=== PATIENT | female | born 1995 | race Two or more races ===

== ENCOUNTER 2024-06-10 21:34 | Emergency (ER) | payer BC, MEDICAID, SELFPAY ==
[2024-06-10 21:35] VITALS: BMI 33.2
[2024-06-10 21:48] VITALS: BP 108/78; PULSE 88; RESP 18; TEMP 37.3; O2SAT 100
--- NOTE | 2024-06-10 21:54 | XR_ITS ---
Examination: Complete OB ultrasound, less than 14 weeks, transabdominal Date and time of exam: June 10, 2024 1059 hrs. Indications: Lower pelvic pain beginning 4 days ago, early by history Technique: Obstetrical ultrasound images less than 14 weeks performed via transabdominal imaging Findings: A normal shaped single intrauterine gestation is present in the uterus. pole 6.7 cm corresponds to 13 weeks 0 days gestational age Cardiac motion 169 bpm Ultrasonographic survey of visible and placental structures unremarkable. Amniotic fluid volume appears appropriate for this estimated gestational age. Right ovary 3.9 x 2.4 x 2.6 cm arterial flow Left ovary 3.0 x 1.6 x 2.3 cm arterial flow. Impression: Viable intrauterine gestation 13 weeks 0 days
--- NOTE | 2024-06-10 21:55 | PD.EDRME ---
Rapid Medical Screening Exam RME Arrival date/time: 06/10/24 21:34 28-year-old female G1 approximately 13 weeks presents emergency department complaining of abdominal cramping with no vaginal bleeding that started 4 days ago. Chief Complaint: Abdominal Pain Time Seen by Provider: 06/10/24 21:46 Vital signs: Vital Signs Temperature 99.2 F 06/10/24 21:48 Pulse Rate 88 06/10/24 21:48 Respiratory Rate 18 06/10/24 21:48 Blood Pressure 108/78 06/10/24 21:48 Pulse Oximetry (%) 100 06/10/24 21:48 Oxygen Delivery Method Room Air 06/10/24 21:48 Vital signs reviewed by provider: Yes
[2024-06-10 22:19] LABS: Basophils # (Auto) 0.1 Thou/mm3 (0.0-0.2); Basophils % (Auto) 1 % (0-2.5); Eosinophils # (Auto) 0.2 Thou/mm3 (0.0-0.5); Eosinophils % (Auto) 1 % (0-10); Hematocrit 38.8 % (36.0-46.0); Hemoglobin 13.4 g/dL (12.0-16.0); Immature Granulocytes % (Auto) 1 % (0-0); Immature Granulocytes Auto 0.18 Thou/mm3 (0.00-0.00); Lymphocytes # (Auto) 3.2 Thou/mm3 (1.0-4.8); Lymphocytes % (Auto) 21 % (10-50); Mean Corpuscular HGB Conc 34.5 g/dl (31.0-37.0); Mean Corpuscular Hemoglobin 29.4 pg (25.0-35.0); Mean Corpuscular Volume 85 fL (80-100); Monocytes # (Auto) 1.1 Thou/mm3 (0.0-0.8); Monocytes % (Auto) 7 % (0-12); Neutrophils # (Auto) 10.6 Thou/mm3 (1.8-7.7); Neutrophils % (Auto) 69 % (37-80); Nucleated Red Blood Cell % 0 /100 WBC (0); Platelet Count 400 Thou/mm3 (140-440); RDW Standard Deviation 37.7 fL (36.4-46.3); Red Blood Count 4.56 Miln/mm3 (4.00-5.20); White Blood Count 15.4 Thou/mm3 (3.6-11.0)
[2024-06-10 22:20] LABS: Collection Type, Urine Clean Catch
[2024-06-10 22:46] LABS: Alanine Aminotransferase 20 U/L (10-49); Albumin, Serum 4.7 gm/dL (3.5-5.0); Albumin/Globulin Ratio 1.9 (1.2-2.2); Alkaline Phosphatase 60 U/L (46-116); Anion Gap 8 (7-16); Aspartate Amino Transferase < 10 U/L (0-34); BUN/Creatinine Ratio 14 Ratio (12-20); Bilirubin,Total 0.3 mg/dL (0.3-1.2); Blood Urea Nitrogen 7 mg/dL (9-23); Calcium 10.7 mg/dL (8.3-10.6); Calcium (Corrected) 10.7 mg/dL (8.5-10.1); Carbon Dioxide 24.2 mMol/L (20.0-31.0); Chloride 103 mMol/L (98-107); Creatinine (Component) 0.5 mg/dL (0.6-1.3); Globulin 2.5 gm/dL (2.3-3.5); Glucose 93 mg/dL (74-106); Osmolality,Calculated 268 (275-295); Potassium 3.6 mMol/L (3.4-5.1); Sodium 135 mMol/L (136-145); Total Protein 7.2 gm/dL (5.7-8.2); eGFR > 60 See Note
[2024-06-10 23:11] LABS: Bacteria,Urine 2+; Bilirubin,Urine Negative (Negative); Blood,Urine Negative (Negative); Budding Yeast,Urine Present; Clarity,Urine Clear (Clear/Hazy); Color,Urine Yellow (Lt Yel-Yel); Glucose, Urine 4+ (Negative); Ketones,Urine Negative (Negative); Leukocyte Esterase,Urine Negative (Negative); Nitrite,Urine Negative (Negative); Protein,Urine Trace (Neg - Trace); RBC,Urine 9 /hpf (0-3); Specific Gravity,Urine 1.033 (1.001-1.035); Squamous Epithelial Cell,Urine 1 /hpf (0-5); Urobilinogen,Urine Negative mg/dL (0.0-1.0); WBC,Urine 7 /hpf (0-5)
[2024-06-10 23:14] LABS: Beta HCG,Quantitative 59437 mIU/mL (<5.0)
[2024-06-10 23:55] LABS: Culture Indicated,Urine Yes
--- NOTE | 2024-06-11 | PD.EDABDPN ---
ED Abdominal Pain RME/HPI General Chief Complaint: Abdominal Pain Stated complaint: 13WK PREG, ABD CRAMPING, LOWER BACK PAIN Time seen by provider: 06/10/24 21:46 Arrival date/time: 06/10/24 21:34 28-year-old female G1 approximately 13 weeks presents emergency department complaining of abdominal cramping with no vaginal bleeding that started 4 days ago. Source: patient Mode of arrival: ambulatory Limitations: no limitations RME / HPI RME / HPI narrative: 06/10/24 21:34 28-year-old female G1 approximately 13 weeks presents emergency department complaining of abdominal cramping with no vaginal bleeding that started 4 days ago. Related Data Previous Rx's ?Medication ?Instructions ?Recorded acetaminophen 500 mg capsule 500 mg PO Q4H PRN fever #60 caps 08/24/18 dextromethorphan-guaifenesin 10 1 tab-cap PO Q8H PRN cough #30 caps 08/24/18 mg-200 mg capsule ibuprofen 800 mg tablet (IBU) 800 mg PO QID PRN pain #60 tabs 08/24/18 acetaminophen 500 mg tablet 1,000 mg (2 x 500 mg) PO Q6H PRN 01/08/24 (Tylenol Extra Strength) pain #60 tabs ibuprofen 800 mg tablet 800 mg PO TID PRN pain #30 tabs 01/08/24 lidocaine 5 % topical patch 1 patch topical Q24H #15 ea 01/08/24 methocarbamol 500 mg tablet 1,000 mg (2 x 500 mg) PO Q8H PRN 01/08/24 muscle pain #30 tabs cephalexin 500 mg capsule 500 mg PO TID 5 days #15 caps 06/11/24 Allergies Allergy/AdvReac Type Severity Reaction Status Date / Time No Known Allergies Allergy Verified 06/10/24 21:35 Review of Systems Review of Systems Systems Reviewed: All systems reviewed, normal except as documented Constitutional Constitutional: Reports system reviewed and no additional complaints, except as documented, Denies body ache(s), Denies chills and Denies fever(s) Eyes Eyes: Reports system reviewed and no additional complaints, except as documented and Denies change in vision ENT Ears, Nose, Mouth, and Throat: Reports system reviewed and no additional complaints, except as documented, Denies disequilibrium, Denies dizziness, Denies sore throat and Denies vertigo Cardiovascular Cardiovascular: Reports system reviewed and no additional complaints, except as documented, Denies chest pain and Denies dyspnea Respiratory Respiratory: Reports system reviewed and no additional complaints, except as documented, Denies chest congestion, Denies cough and Denies dyspnea Gastrointestinal Gastrointestinal: Reports system reviewed and no additional complaints, except as documented, Reports abdominal pain, Denies nausea and Denies vomiting Musculoskeletal Musculoskeletal: Reports system reviewed and no additional complaints, except as documented, Denies abnormal gait and Denies arthralgias Integumentary/Breasts Skin/Breast: Reports system reviewed and no additional complaints, except as documented, Denies erythema, Denies rash and Denies wounds Neurologic Neurologic: Reports system reviewed and no additional complaints, except as documented, Denies abnormal gait, Denies disequilibrium, Denies dizziness and Denies vertigo Past Medical History Past Medical History CARDIAC: Negative Congestive Heart Failure RESPIRATORY: Negative Chronic Obstructive Pulmonary Disease (COPD) GENITOURINARY: Negative Renal Disease ENDOCRINE: Negative Diabetes Mellitus Type 1 or Diabetes Mellitus Type 2 Social History SMOKING STATUS: Never smoker SUBSTANCE USE: does not use ED Exam General Limitations: Present no limitations General appearance: Present alert and in no apparent distress Head Head exam: Present atraumatic Eye Eye exam: Present normal appearance, PERRL and EOMI ENT ENT exam: Present normal exam, normal oropharynx and mucous membranes moist Neck Neck exam: Present normal inspection, full ROM and trachea midline Chest Chest inspection: Present normal inspection and symmetric chest wall rise Respiratory Respiratory exam: Present normal lung sounds bilaterally Cardiovascular Cardiovascular exam: Present regular rate, normal rhythm and normal heart sounds Abdominal Exam Abdominal exam: Present soft and normal bowel sounds Extremities Exam Extremities exam: Present normal inspection and full ROM Back Exam Back exam: Present normal inspection and full ROM Neurological Exam Neurological exam: Present alert, oriented X3 and CN II-XII intact Psychiatric Psychiatric exam: Present normal affect and normal mood Skin Skin exam: Present warm, dry, intact and normal color Course Quality Measures none Orders Category Date Time Status US OB <= 14 weeks fetus Stat Exams 06/10/24 21:54 Completed ABO/RH Type Stat Lab 06/10/24 22:15 Completed Beta HCG,Quantitative Stat Lab 06/10/24 22:15 Completed CBC Stat Lab 06/10/24 22:15 Completed CMP [Comprehensive Metabolic Panel] Stat Lab 06/10/24 22:15 Completed Urinalysis, C/S if Indicated Stat Lab 06/10/24 22:12 Completed Urine Culture Stat Lab 06/10/24 22:12 Received [id number] [Rocephin] 1,000 mg Med 06/10/24 23:59 Discontinued Lidocaine 1% 20 ml [Xylocaine 1% 20 ML] 2.1 ml IM X1 Vital Signs Vital signs: Vital Signs Temperature 99.2 F 06/10/24 21:48 Pulse Rate 88 06/10/24 21:48 Respiratory Rate 18 06/10/24 21:48 Blood Pressure 108/78 06/10/24 21:48 Pulse Oximetry (%) 100 06/10/24 21:48 Oxygen Delivery Method Room Air 06/10/24 21:48 100% room air within normal limits Abdominal Pain MDM MDM Narrative MDM Narrative:: 28-year-old female G1 approximately 13 weeks presents emergency department complaining of abdominal cramping with no vaginal bleeding that started 4 days ago. CBC mild leukocytosis 15.4 no anemia. CMP was unremarkable. Beta-hCG 59 437. Ultrasound findings viable intrauterine gestation 13 weeks. Urinalysis positive for WBCs and bacteria concerning for UTI. Patient treated with IM Rocephin and discharged on cephalexin. Patient appears nontoxic and hemodynamically stable. Patient stable for discharge. Patient data External records reviewed:: [facility] previous records Clinical information provided by:: patient Social determinants that could affect healthcare access:: none Patient has the following chronic illnesses:: None How is presenting disease/condition affected by chronic disease/condition?: no chronic disease Evaluation data The following diagnostics were reviewed and interpreted by me:: lab results and radiology exam(s) Lab and/or radiology exams considered but not ordered:: Ordered Interpretation Summary: Interpreted by me Medications / Prescriptions Medications or Prescriptions considered but not ordered:: Ordered Medication administrations:: Medication Administration History Discontinued Medications Ceftriaxone Sodium 1,000 mg/ (Lidocaine HCl 2.1 ml) 0 mg IM X1 ONE Stop: 06/11/24 00:00 Last Admin: 06/11/24 00:10 Dose: 2.1 mg Documented By: OA Given Consultations Consultation(s) initiated? (list below): No Diagnosis Differential diagnosis abdominal pain: abdominal pain, acute appendicitis, constipation, endometriosis, gastroenteritis and pancreatitis Most likely diagnosis given after review of the tests above:: UTI affecting Admission Indicated Admission indicated?: not indicated Admission Request Was there a request for admission?: No Disposition Plan Disposition Plan: Discharge Discharge Attestation Discharge Attestation: The patient and all family members were given an opportunity to ask questions and understood the discharge instructions. Discharge instructions specifically effects, indications for sooner follow up or return to the emergency department, and the expected course of current diagnosis. Patient condition: Stable Discharge Plan Plan Patient Disposition: HOME (Self Care) Disposition Comment: Stable Prescriptions/Referrals Prescriptions/Med Rec: New cephalexin 500 mg capsule 500 mg PO TID 5 Days Qty: 15 0RF No Action acetaminophen 500 mg capsule 500 mg PO Q4H PRN (Reason: fever) Qty: 60 0RF ibuprofen [IBU] 800 mg tablet 800 mg PO QID PRN (Reason: pain) Qty: 60 0RF dextromethorphan-guaifenesin 10-200 mg capsule 1 tab-cap PO Q8H PRN (Reason: cough) Qty: 30 0RF ibuprofen 800 mg tablet 800 mg PO TID PRN (Reason: pain) Qty: 30 0RF acetaminophen [Tylenol Extra Strength] 500 mg tablet 1,000 mg PO Q6H PRN (Reason: pain) Qty: 60 0RF methocarbamol 500 mg tablet 1,000 mg PO Q8H PRN (Reason: muscle pain) Qty: 30 0RF lidocaine 5 % adhesive patch,medicated 1 patch topical Q24H Qty: 15 0RF Rx Instructions: leave on most painful area for up to 12 hrs Referrals: Grazyna Auguste PA-C ([facility]) [Primary Care Provider] - In 1 week Problem List Clinical Impression: Urinary tract infection affecting Patient/Caregiver Discharge Instructions Discharge Activity: activity as tolerated Education Materials: ED CYSTITIS Female Adult Additional Instructions: Drink plenty of fluids and get plenty of rest. Take antibiotics as prescribed. Follow-up with DELIVERY SUPERVISOR in 2 to 3 days. Pelvic rest. Return to emergency department for any worsening symptoms or as needed. Print Language: Armenian Stand Alone Forms: Carmen Award Info., Patient Portal Info Letter PA/JOHNNY Supervising Physician PA/CUSTOMER COUNTER REPRESENTATIVE Supervising Physician: Dr. Nuñez
[2024-06-11] MEDS: cefTRIAXone 1,000 MG, LIDOCAINE 1% 20 ML 2.1 ML IM (00:10)
== END 2024-06-11 01:11 | disposition home or self-care (01) ==
PROVIDERS: Emergency Provider Emergency Medicine; PCP Nurse Practitioner Family
DX: O23.41 Unspecified infection of urinary tract in pregnancy, first trimester (principal); N39.0 Urinary tract infection, site not specified; Z3A.13 13 weeks gestation of pregnancy
CPT/HCPCS: 36415; 76801; 80053; 81001; 84702; 85025; 86900; 86901; 87086; 96372; 99284; J0696; J3490

== ENCOUNTER 2024-09-03 06:14 | Observation (INO) | payer BC, MEDICAID, SELFPAY ==
[2024-09-03 06:25] VITALS: BP 122/76; PULSE 89; RESP 18; RESP 98; TEMP 37
[2024-09-03 06:26] VITALS: BP 122/76; PULSE 86; O2SAT 97
[2024-09-03 06:29] VITALS: TEMP 37; BMI 35.4
== END 2024-09-03 07:07 | disposition home or self-care (01) ==
PROVIDERS: Admitting Provider Specialist; Visit Provider Specialist
DX: O36.8120 Decreased fetal movements, second trimester, not applicable or unspecified (principal); Z3A.25 25 weeks gestation of pregnancy
CPT/HCPCS: 59899

== ENCOUNTER 2024-12-07 22:32 | Observation (INO) | payer MEDICAID, SELFPAY ==
[2024-12-07] VITALS (17 sets, daily range): BP systolic 115–129; BP diastolic 70–79; PULSE 83–100; RESP 18–97; TEMP 36.8; O2SAT 93–98; BMI 37.5
--- NOTE | 2024-12-07 23:10 | XR_ITS ---
Examination: Complete OB ultrasound greater than 14 weeks Date and time of exam: December 07, 2024, 11:27 PM INDICATIONS: Patient fell today with injury to the pelvis with pain Findings: Viable intrauterine single fetus with single amniotic sac presentation cephalic spine maternal right Hernia motion 125 BPM Placenta anterior grade 3 Umbilical cord insertion seen Cervix 3.0 cm Right ovary 5.3 x 3.1 cm Left ovary is obscured by bowel gas. Composite estimated gestational age based on BPD, head circumference, abdominal circumference, femur length is 38 weeks 1 day Estimated weight 3859 g. Survey of intracranial anatomy, spinal anatomy, abdominal anatomy, four-chamber heart performed with no abnormalities identified. Impression: Viable intrauterine gestation cephalic presentation No placental abruption.
--- NOTE | 2024-12-07 23:10 | XR_ITS ---
Examination: Biophysical profile, ultrasound Date and time of exam: December 07, 2024, 11:19 PM INDICATIONS: Patient fell this morning with pelvic pain Technique: Multiple transabdominal sonographic images of the pelvis abdomen obtained. Attention is directed to the breathing movement, gross body movement, amniotic fluid volume and tone. Findings: Amniotic fluid index 15.2 cm Total biophysical profile is 8 of 8. breathing movement is 2. Gross body movement is 2. tone is 2. Qualitative amniotic fluid volume is 2 Impression: Biophysical profile is 8 of 8.
[2024-12-07 23:17] LABS: ROM Kit Lot # 58102387
[2024-12-07 23:18] LABS: Rupture of Fetal Membranes Negative (Negative); Swb Mxed in Solvent 1 min? Yes
[2024-12-08] VITALS (32 sets, daily range): BP systolic 105–131; BP diastolic 56–86; PULSE 69–96; RESP 18; TEMP 36.8; O2SAT 95–98
[2024-12-08] MEDS: RINGERS LACTATED 1000 ML 1,000 ML 999 ML IV (00:45)
[2024-12-08] MEDS: RINGERS LACTATED 1000 ML 1,000 ML 125 ML IV (01:35)
[2024-12-08 02:55] LABS: Basophils % (Auto) 0 % (0-2.5); Eosinophils # (Auto) 0.1 Thou/mm3 (0.0-0.5); Eosinophils % (Auto) 1 % (0-10); Hematocrit 35.2 % (36.0-46.0); Hemoglobin 12.2 g/dL (12.0-16.0); Immature Granulocytes % (Auto) 1 % (0-0); Lymphocytes # (Auto) 1.7 Thou/mm3 (1.0-4.8); Lymphocytes % (Auto) 19 % (10-50); Mean Corpuscular HGB Conc 34.7 g/dl (31.0-37.0); Mean Corpuscular Hemoglobin 28.6 pg (25.0-35.0); Mean Corpuscular Volume 83 fL (80-100); Monocytes # (Auto) 0.8 Thou/mm3 (0.0-0.8); Monocytes % (Auto) 9 % (0-12); Neutrophils # (Auto) 6.5 Thou/mm3 (1.8-7.7); Neutrophils % (Auto) 70 % (37-80); Nucleated Red Blood Cell % 0 /100 WBC (0); Platelet Count 249 Thou/mm3 (140-440); RDW Standard Deviation 39.7 fL (36.4-46.3); Red Blood Count 4.26 Miln/mm3 (4.00-5.20); White Blood Count 9.2 Thou/mm3 (3.6-11.0)
--- NOTE | 2024-12-08 09:39 | PD.LDANTE ---
Documentation for date of: 12/08/24 OB Labor/Induct. HPI History of Present Illness Chief complaint: Abdominal trauma : 1 Para: 0 Term pregnancies: 0 pregnancies: 0 Living children: 0 History of Abortions: Spontaneous and Elective: 0 History of Vaginal deliveries: 0 History of sections: No History of : No ELIAS: 12/16/24 History of present illness: 29-year-old 1 para 0 at 38 weeks and 6 days who presented to labor and delivery triage with left-sided abdominal trauma Patient had intermittent contractions on presentation. She was initially managed with monitoring as well as ultrasound which was within normal limits subsequently she proceeded to have more frequent uterine contractions and she was admitted for inpatient observation. Patient did well overnight, she was able to sleep. Denies any significant contractions at this time History of Present Adequate Care: Yes Past Medical History Surgical History SURGICAL: Negative Section Meds Home Medications and Allergies Home Medications ?Medication ?Instructions ?Recorded ?Confirmed ?Type folic acid 1 mg tablet 09/03/24 History vit no.95-ferrous tab PO 09/03/24 History fumarate 28 mg-folic acid 800 mcg tablet () Allergies Allergy/AdvReac Type Severity Reaction Status Date / Time No Known Allergies Allergy Verified 12/07/24 22:59 OB Exam Physical Exam Vital signs: Temp Pulse Resp BP Pulse Ox 98.3 F 69 18 108/74 97 12/08/24 06:00 12/08/24 08:15 12/08/24 06:00 12/08/24 08:15 12/08/24 00:54 Constitutional Constitutional: no acute distress Routine HEENT Exam Head: Present normocephalic and atraumatic Eye: Present EOMI and PERRL ENT: Present mucous membranes moist Routine Neck Exam Neck: Present supple and trachea midline Routine Cardiovascular Exam Cardiovascular: Present RRR Routine Abdominal Exam Abdominal: Present soft and normoactive bowel sounds Detailed Labor and Delivery Exam Dilation (cm): 0.5 Cervix position: mid station: -4 Consistency: firm Routine Extremities Exam Extremities: Present full ROM Routine Skin Exam Skin: Present intact, dry and warm Routine Neurological Exam Neurological: Present alert, oriented X3 and CN II-XII intact Routine Psychiatric Exam Psychiatric: Present normal affect and normal thought process OB Results Labs 12/08/24 00:45 Labs: Short CBC 06/29/25 Range/Units 00:45 WBC 9.2 (3.6-11.0) Thou/mm3 Hgb 12.2 (12.0-16.0) g/dL Hct 35.2 L (36.0-46.0) % Plt Count 249 (140-440) Thou/mm3 OB Assessment & Plan Assessment and Plan (1) Trauma during : Status: Acute Assessment and plan: Patient has been observed overnight without any cervical change, onset of uterine bleeding or leakage of fluid Will plan to discharge home now and she can continue to follow-up for her routine office visits
[2024-12-08 19:53] LABS: Syphilis Nonreactive (Nonreactive)
== END 2024-12-08 10:50 | disposition home or self-care (01) ==
PROVIDERS: Admitting Provider Obstetrics & Gynecology; Visit Provider Obstetrics & Gynecology
DX: O9A.213 Injury, poisoning and certain other consequences of external causes complicating pregnancy, third trimester (principal); S39.91XA Unspecified injury of abdomen, initial encounter; W19.XXXA Unspecified fall, initial encounter; O47.1 False labor at or after 37 completed weeks of gestation; Z3A.38 38 weeks gestation of pregnancy
CPT/HCPCS: 36415; 59025; 59899; 76805; 76819; 84112; 85025; 86780; 86850; 86900; 86901; J7120

== ENCOUNTER 2024-12-15 22:10 | Observation (INO) | payer MEDICAID, SELFPAY ==
[2024-12-15] VITALS (15 sets, daily range): BP systolic 118; BP diastolic 76; PULSE 75–95; RESP 18–98; TEMP 36.8; O2SAT 96–98
== END 2024-12-15 23:40 | disposition home or self-care (01) ==
PROVIDERS: Admitting Provider Obstetrics & Gynecology; Visit Provider Obstetrics & Gynecology
DX: O47.1 False labor at or after 37 completed weeks of gestation (principal); Z3A.39 39 weeks gestation of pregnancy
CPT/HCPCS: 59025; 59899

== ENCOUNTER 2024-12-23 14:28 | Inpatient (IN) | payer MEDICAID, SELFPAY ==
[2024-12-23] VITALS (31 sets, daily range): BP systolic 108–129; BP diastolic 58–92; PULSE 84–97; RESP 18–97; TEMP 36.7–37.1; O2SAT 95–98; BMI 38.0; BMI 36.8
--- NOTE | 2024-12-23 15:51 | XR_ITS ---
Examination: age Limited TECHNIQUE: Limited transabdominal sonographic images pelvis Date and time: December 23, 2024 1605 hours INDICATIONS: Post dates, unknown presentation FINDINGS: Viable intrauterine gestation cephalic presentation spine anterior maternal right Cardiac motion 166 BPM IMPRESSION: Viable intrauterine gestation cephalic presentation
[2024-12-23 16:02] LABS: Basophils # (Auto) 0.1 Thou/mm3 (0.0-0.2); Basophils % (Auto) 1 % (0-2.5); Eosinophils # (Auto) 0.1 Thou/mm3 (0.0-0.5); Eosinophils % (Auto) 1 % (0-10); Hematocrit 36.2 % (36.0-46.0); Hemoglobin 12.9 g/dL (12.0-16.0); Immature Granulocytes Auto 0.12 Thou/mm3 (0.00-0.00); Lymphocytes # (Auto) 1.7 Thou/mm3 (1.0-4.8); Lymphocytes % (Auto) 18 % (10-50); Mean Corpuscular HGB Conc 35.6 g/dl (31.0-37.0); Mean Corpuscular Hemoglobin 29.0 pg (25.0-35.0); Mean Corpuscular Volume 81 fL (80-100); Monocytes # (Auto) 1.0 Thou/mm3 (0.0-0.8); Monocytes % (Auto) 10 % (0-12); Neutrophils # (Auto) 6.8 Thou/mm3 (1.8-7.7); Neutrophils % (Auto) 70 % (37-80); Nucleated Red Blood Cell # 0.00 Thou/mm3 (0.00-0.00); Nucleated Red Blood Cell % 0 /100 WBC (0); Platelet Count 262 Thou/mm3 (140-440); RDW Standard Deviation 40.0 fL (36.4-46.3); Red Blood Count 4.45 Miln/mm3 (4.00-5.20); White Blood Count 9.8 Thou/mm3 (3.6-11.0)
[2024-12-23 16:41] LABS: Syphilis Nonreactive (Nonreactive)
[2024-12-23] MEDS: RINGERS LACTATED 1000 ML 1,000 ML 100 ML IV (17:15)
--- NOTE | 2024-12-23 22:05 | PD.LDHP ---
Documentation for date of: 12/23/24 OB Labor/Induct. HPI History of Present Illness Chief complaint: IOL : 1 Para: 0 Term pregnancies: 0 pregnancies: 0 Living children: 0 History of Abortions: Spontaneous and Elective: 0 History of Vaginal deliveries: 0 History of sections: No History of : No Date of last menstrual period: 03/24/24 ELIAS: 12/16/24 Gestational Age (weeks): 41 Gestational Age (days): 0 Gestational age based on last menstrual period: 39 History of present illness: Johanna Shah is a 29-year-old 1 para 0 at 41 weeks and 0 days gestation presenting for term induction of labor. Her estimated due date is 12/16/2024, based on an ultrasound performed on 03/24/2024. The patient receives care with Dr. Farias at [facility] and has been compliant with her appointments. On presentation, Ms. Shah denies any contractions, leakage of fluid, or other obstetric complaints. She has had an unremarkable course with normal ultrasounds throughout. The patient's records have been reviewed, indicating appropriate care and screening. Obstetric History: - GPAL: A0 L0 - Current : - Gestational age: 41 weeks and 0 days - Estimated due date: December 16, 2024 - care with Dr. Farias at [facility] - Group B strep negative Diagnostic Test Results and Labs: - Panel (07/10/2024): Blood group O positive, antibody screen negative, HIV non-reactive, RPR non-reactive, hepatitis B surface antigen negative, rubella immune, gonorrhea not detected, chlamydia not detected - Triple screen (07/10/2024): Negative - One-hour glucose tolerance test (09/10/2024): 115 - Ultrasounds: Unremarkable - Group B strep: Negative ROS: Obstetric: Negative for contractions, leakage of fluid. Labs Labs: Positive: Rubella Titre, Negative: RPR, Hepatitis B, HIV, Chlamydia, Gonorrhea and Group Beta Strep and Unknown: Herpes Type 1, Herpes Type 2 and Covid-19 Past Medical History Surgical History SURGICAL: Negative Section Meds Home Medications and Allergies Home Medications ?Medication ?Instructions ?Recorded ?Confirmed ?Type folic acid 1 mg tablet 09/03/24 History vit no.95-ferrous 1 tab PO QDAY 09/03/24 12/23/24 History fumarate 28 mg-folic acid 800 mcg tablet () Allergies Allergy/AdvReac Type Severity Reaction Status Date / Time No Known Allergies Allergy Verified 12/23/24 14:35 OB Exam Physical Exam Vital signs: Temp Pulse Resp BP Pulse Ox O2 Del Method 98.1 F 89 18 108/86 H 97 Room Air 12/23/24 19:04 12/23/24 20:23 12/23/24 14:30 12/23/24 20:23 12/23/24 16:03 12/23/24 14:30 Constitutional Constitutional: no acute distress Routine HEENT Exam Head: Present normocephalic and atraumatic Eye: Present EOMI and PERRL ENT: Present mucous membranes moist Routine Neck Exam Neck: Present supple and trachea midline Routine Cardiovascular Exam Cardiovascular: Present RRR Routine Abdominal Exam Abdominal: Present soft and normoactive bowel sounds Detailed Labor and Delivery Exam Dilation (cm): FT Effacement (%): 0 Cervix position: mid station: -3 Consistency: firm Presentation: Vertex Baseline heart rate: 135 monitor accelerations: 15x15 monitor decelerations: None middle or intermediate school principal variability: Average (6-10) Routine Extremities Exam Extremities: Present full ROM Routine Skin Exam Skin: Present intact, dry and warm Routine Neurological Exam Neurological: Present alert, oriented X3 and CN II-XII intact Routine Psychiatric Exam Psychiatric: Present normal affect and normal thought process OB Results Labs 12/23/24 15:40 Labs: Short CBC 12/23/24 Range/Units 15:40 WBC 9.8 (3.6-11.0) Thou/mm3 Hgb 12.9 (12.0-16.0) g/dL Hct 36.2 (36.0-46.0) % Plt Count 262 (140-440) Thou/mm3 OB Assessment & Plan Assessment and Plan (1) Encounter for induction of labor: Status: Acute Assessment and plan: Term (41 weeks and 0 days) Assessment: - 29-year-old 1 para 0 at 41 weeks and 0 days gestation - EDC of 12/16/2024 determined by ultrasound on 03/24/2024 - Compliant with care - All labs and ultrasounds unremarkable - Denies contractions, leakage of fluid, or other obstetric complaints Plan: - Admit to inpatient labor and delivery for induction of labor - Obtain CBC, type and screen, RPR - Establish IV access, administer fluids at 125 cc/hr - Initiate continuous maternal monitoring - Begin cervical ripening with misoprostol - Proceed to oxytocin administration when Bernal's score is favorable - Group B strep negative, no prophylaxis indicated - Offer epidural analgesia or other pain management options as desired by patient
[2024-12-24] VITALS (289 sets, daily range): BP systolic 96–164; BP diastolic 61–102; PULSE 75–122; RESP 18; TEMP 36.4–36.8; O2SAT 72–100
[2024-12-24] MEDS: fentaNYL CIT INJ 50 mCg/ML AMP 2ML 100 MCG IVP ×3 (00:58→04:22)
--- NOTE | 2024-12-24 10:48 | PD.LDPN ---
Documentation for date of: 12/24/24 OB Labor Progress Note Pelvic Exam Dilation (cm): 7 Effacement (%): 70 station: -1 Amniotic membrane status: Leaking Contractions Monitor mode: External Contraction frequency: 3-7 Contraction pattern: Tetanic Contraction intensity: Moderate Status status: Category l Assessment and Plan Comments: Anticipate vaginal delivery Informed consent was obtained. The patient was made aware of the risks, complications, alternatives and benefits of operative vaginal delivery and delivery and agrees with these modes of delivery if indicated.
[2024-12-24] MEDS: OXYTOCIN in NS 30 units 30 UNIT/500 ML BAG IV (15:40)
[2024-12-24] MEDS: RINGERS LACTATED 1000 ML 1,000 ML 100 ML IV (16:15)
[2024-12-24] MEDS: ACETAMINOPHEN IVPB 1,000 MG/100 ML VIAL 250 MG IV (20:24)
[2024-12-25] VITALS (24 sets, daily range): BP systolic 107–138; BP diastolic 60–91; PULSE 90–189; RESP 16–40; TEMP 36.6–38.1; O2SAT 73–100
--- NOTE | 2024-12-25 00:11 | PD.LDPN ---
Documentation for date of: 12/25/24 OB Labor Progress Note Pelvic Exam Dilation (cm): fully Effacement (%): 100 station: +2 Amniotic membrane status: Ruptured Contractions Monitor mode: External Contraction frequency: 2-4 Contraction intensity: Strong Status status: Category l Assessment and Plan Comments: Arrest of descent delivery Informed consent was obtained. The patient was made aware of the risks, complications, alternatives and benefits of the proposed procedure and she agrees. She was made aware of the risk of bleeding leading to blood transfusion, blood clots in the deep veins of the legs and lungs, anesthesia complications, injury to bowel bladder and adjacent organs, uterine atony resulting in hysterectomy, hematoma, abscess, wound infection, reoperation to repair injury to internal organs or evacuate hematoma or abscess. Reoperation to control bleeding. Placed a second IV line Type and cross for 2 units packed red blood cells if needed.
--- NOTE | 2024-12-25 00:18 | PD.GYNPROC ---
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 Procedure Date of procedure: 12/25/24 Procedure Performed: Primary low transverse Section via Pfannensteil skin incision Indication: IUP 41w2d Induction of Labor 2nd Stage Labor Arrest of Descent Pre-Op diagnosis: IUP 41w2d Induction of Labor 2nd Stage Labor Arrest of Descent Post-Op diagnosis: IUP 41w2d Induction of Labor 2nd Stage Labor Arrest of Descent Endometriosis Anesthesia type: Epidural Procedure description: After proper informed consent was obtained and the patient was made aware of the risks, complications, alternatives and benefits of the proposed procedure she was taken to the operating room where she underwent induction of spinal anesthesia. She was prepped and draped in the usual sterile fashion. A timeout was performed.? A Pfannenstiel skin incision was made with the scalpel and carried through to the underlying layer of fascia with the Bovie. The fascia was nicked in the midline incision and the incision was extended bilaterally with the Bovie. The inferior aspect of the fascial incision was grasped with Cely clamps elevated and the underlying rectus muscle dissected off with the Bovie. The superior aspect the fascial incision was grasped with Cely clamps elevated and the underlying rectus muscle dissected off with the Bovie. The rectus muscles were in the midline. The peritoneum was grasped between 2 Jara clamps and entered sharply with the Metzenbaum scissors. The peritoneum was extended superiorly and inferiorly with good visualization of the bladder. The vesicouterine peritoneum was incised transversely and the bladder flap created digitally. A Homer blade was inserted. A low transverse incision was made in the uterus with a scapel and the incision was extended digitally. The infant's head delivered and the mouth and nose were suctioned with the bulb suction. The shoulder and body delivered atraumatically. The cord was clamped after 30 second delayed cord clamping and the cord was cut.? The infant was handed off to the waiting Pediatric staff, cord blood was collected for lab testing. The placenta was removed complete and intact. The uterus was exteriorized and cleared of all clots and debris. The uterine incision was closed with #1-0 chromic catgut suture in a running interlocking fashion. A second layer of the same suture was used to imbricate the first layer and obtain excellent hemostasis. The vesicouterine peritoneum was closed with 2-0 chromic catgut suture in a running fashion. The firm uterus was returned to the abdomen. The gutters were cleared of all clots and debris. The peritoneum was closed with 0 chromic catgut suture in running fashion. The rectus muscle was closed with 0 chromic catgut suture. The fascia was closed with 0 Vicryl beginning at each angle and ending in the center in a running fashion. The subcutaneous tissue was irrigated with warmed normal saline solution and found to be hemostatic. The subcutaneous tissue was closed with 2-0 chromic catgut suture in a running fashion. The skin was closed with 4-0 Monocryl. A Dermabond Prineo dressing was applied and a sterile pressure dressing was applied.? She tolerated the procedure well. Counts were correct. I discussed with the patient the nature of her condition, intraoperative findings and expectation for recovery all? questions answered. Estimated blood loss (ml): 700 Findings: Live infant , APGARs 9/9 Clear amniotic fluid Right occiput transverse Placenta removed complete and intact Superficial endometriotic implants on both uterosacaral ligaments. Complications: none Surgical staff [place] PATE Diagnosis Discharge Diagnosis (1) Arrest of descent, delivered, current hospitalization: Status: Acute (2) delivery delivered: Status: Acute (3) Endometriosis: Status: Acute Problem List Completed Was Problem List Reviewed/Reconciled?: Yes
[2024-12-25] MEDS: CITRIC ACID/SODIUM CITR 15 ML UDC (BICITRA) 30 ML PO (00:22)
[2024-12-25] MEDS: FAMOTIDINE INJ 10 MG/ML VIAL 2 ML 20 MG IV (00:22)
--- NOTE | 2024-12-25 01:22 | PD.LDDS ---
DS: Providers Provider Date of admission: 12/23/24 14:28 Primary care physician: Physician No Primary/Family Admitting Provider: Tutu Almonte MD Attending Provider on Admission: Wong Farias MD Attending Provider on DC: Wong Farias MD Discharging Provider: Wong Farias MD DS: Diagnosis Discharge Diagnosis (1) Arrest of descent, delivered, current hospitalization: Status: Acute (2) delivery delivered: Status: Acute Problem List Completed Was Problem List Reviewed/Reconciled?: Yes Summary/Hosp Course Brief History: Johanna Shah is a 29-year-old 1 para 0 at 41 weeks and 0 days gestation presenting for term induction of labor. Her estimated due date is 12/16/2024, based on an ultrasound performed on 03/24/2024. The patient receives care with Dr. Farias at [facility] and has been compliant with her appointments. On presentation, Ms. Shah denies any contractions, leakage of fluid, or other obstetric complaints. She has had an unremarkable course with normal ultrasounds throughout. The patient's records have been reviewed, indicating appropriate care and screening. Obstetric History: - GPAL: A0 L0 - Current : - Gestational age: 41 weeks and 0 days - Estimated due date: December 16, 2024 - care with Dr. Farias at [facility] - Group B strep negative Diagnostic Test Results and Labs: - Panel (07/10/2024): Blood group O positive, antibody screen negative, HIV non-reactive, RPR non-reactive, hepatitis B surface antigen negative, rubella immune, gonorrhea not detected, chlamydia not detected - Triple screen (07/10/2024): Negative - One-hour glucose tolerance test (09/10/2024): 115 - Ultrasounds: Unremarkable - Group B strep: Negative ROS: Obstetric: Negative for contractions, leakage of fluid. Peripartum Data Delivery Method: Low Transverse Procedures: Procedures Operation Date: 12/25/24 01:00 <No data on this case meets the specified criteria> 1: Gender: Male Time Spent with Patient Time attestation: Total time spent providing and/or coordinating discharge services: Exam Vital Signs Temp Pulse Resp BP Pulse Ox O2 Del Method 98.3 F 91 18 122/82 99 Room Air 12/24/24 18:30 12/25/24 00:11 12/24/24 07:20 12/25/24 00:11 12/25/24 00:26 12/23/24 14:30 Discharge Plan Plan Patient Disposition: HOME (Self Care) Prescriptions/Referrals Prescriptions/Med Rec: New hydrocodone-acetaminophen 5-325 mg tablet 1 tab PO Q6H MDD 4 PRN (Reason: pain) Qty: 20 0RF ibuprofen 600 mg tablet 600 mg PO Q6H PRN (Reason: pain) Qty: 30 0RF Continued PNV cmb#95-ferrous fumarate-FA [] 28 mg iron- 800 mcg tablet 1 tab PO QDAY Patient Comments: TAKE 1 TABLET BY MOUTH EVERY DAY FOR 30 DAYS Discontinued folic acid 1 mg tablet Patient Comments: TAKE 1 TABLET BY MOUTH EVERY DAY FOR 30 DAYS Referrals: No Primary/Family,Physician [Primary Care Provider] - Patient/Caregiver Discharge Instructions Discharge Activity: activity as tolerated Other Discharge Activity Instructions:: Follow up office 1 week. Print Language: Turkish Stand Alone Forms: Carmen Award Info., Patient Portal Info Letter Planned Discharge Date 12/27/24
[2024-12-25] MEDS: KETOROLAC INJ 30 MG/ML VIAL IVP ×3 (01:56→14:28)
[2024-12-25] MEDS: OXYTOCIN in NS 20 units 20 UNIT/1,000 ML BAG 125 UNIT IV (02:00)
--- NOTE | 2024-12-25 05:26 | PD.LDDELS ---
Data (Reed) Data Hx Section: No : 1 Term: 0 : 0 Livin Abortions: Spontaneous & Theraputic: 0 Delivery Data (Reed) Labor Data Initiation of labor: Induction Induction/Augmentation Agent: Cervidil, Pitocin and Artificial ROM ROM date: 12/24/24 ROM time: 10:06 Amniotic membrane rupture type: Artificial Amniotic fluid description: Clear Delivery Data EDC: 12/16/24 EDC calculated by:: LMP/early US confirmation Onset of labor date: 12/24/24 Onset of labor time: 07:00 Complete dilation date: 12/24/24 Complete dilation time: 21:00 delivery date: 12/25/24 [place] delivery time: 00:44 Gestational age (weeks): 41 Gestational age (days): 2 Placenta delivery date: 12/25/24 Placenta delivery time: 00:45 Stage 1 total time: Labor - Stage 1 Duration 14 hours and 0 minutes Delivered by: Wong Farias Delivery nurse: graciela Reynolds nurse: Kailey SHERIDAN [employer] Internet Sales Manager at delivery: Yes Support person(s) at delivery: FOB in OR for delivery Other staff at delivery: Jannie SHERIDANcounty court judge Method Delivery method: Low Transverse Presentation: Vertex position: ROT Anesthesia Type Anesthesia Type: Epidural Anesthesia type: Epidural Placenta Placenta delivery description: Manual Removal Cord blood sent to lab: Yes cord blood collection: Cord Blood Type Episiotomy Episiotomy description: None EBL Estimated blood loss (ml): 700 Umbilical Cord cord description: 3 Vessels Complications Complications: None Data (Reed) [place] Data order: 1 's gender: Male Identification band number: [id number] weight (gms): 8 lb 1.808 oz Weight (pounds): 8 lbs and 1.8 ozs length: 20.08 in 1 minute: 9 5 minutes: 9
[2024-12-25 06:24] LABS: Basophils # (Auto) 0.0 Thou/mm3 (0.0-0.2); Basophils % (Auto) 0 % (0-2.5); Eosinophils # (Auto) 0.0 Thou/mm3 (0.0-0.5); Eosinophils % (Auto) 0 % (0-10); Hematocrit 33.4 % (36.0-46.0); Hemoglobin 11.9 g/dL (12.0-16.0); Immature Granulocytes Auto 0.11 Thou/mm3 (0.00-0.00); Lymphocytes # (Auto) 0.8 Thou/mm3 (1.0-4.8); Lymphocytes % (Auto) 4 % (10-50); Mean Corpuscular HGB Conc 35.6 g/dl (31.0-37.0); Mean Corpuscular Hemoglobin 29.3 pg (25.0-35.0); Mean Corpuscular Volume 82 fL (80-100); Monocytes # (Auto) 1.0 Thou/mm3 (0.0-0.8); Monocytes % (Auto) 6 % (0-12); Neutrophils # (Auto) 16.0 Thou/mm3 (1.8-7.7); Neutrophils % (Auto) 89 % (37-80); Nucleated Red Blood Cell # 0.00 Thou/mm3 (0.00-0.00); Nucleated Red Blood Cell % 0 /100 WBC (0); Platelet Count 221 Thou/mm3 (140-440); RDW Standard Deviation 40.8 fL (36.4-46.3); Red Blood Count 4.06 Miln/mm3 (4.00-5.20); White Blood Count 18.0 Thou/mm3 (3.6-11.0)
[2024-12-25] MEDS: ceFAZolin/D5W 2 GM IV 2 GM/100 ML BAG IV (07:50)
[2024-12-25] MEDS: DOCUSATE SOD 100 MG CAPSULE PO (08:34)
[2024-12-25] MEDS: HYDROcodone/APAP 5/325 TABLET 2 TAB PO ×2 (08:34→15:34)
--- NOTE | 2024-12-25 09:47 | XR_ITS ---
Examination: Ultrasound-guided fine needle percutaneous aspiration thyroid nodule, isthmus nodule. Thyroid sonography, limited Exam date and time: December 25, 2024 1021 hours INDICATIONS: Isthmus solid nodule on thyroid sonogram October 21, 2024. Technique: A timeout was completed verifying correct patient, procedure, site, positioning and special equipment if applicable. The patient was placed in supine position for the thyroid fine needle percutaneous aspiration The patient's central neck was prepped and draped in sterile fashion. Maximum barrier sterile technique, hand hygiene, ultrasound sterile technique. 1% lidocaine was used to anesthetize the skin and subcutaneous tissues to the patient's right thyroid nodule. Multiple fine needle aspirations were performed and multiple thyroid specimens placed in preservative according to the irm protocol. Specimens appears satisfactory. The attending radiologist was present for the entire procedure. Estimated blood loss 3 cc. The patient tolerated the procedure well and there were no complications. Impression: Successful ultrasound-guided fine-needle percutaneous aspiration thyroid nodule, isthmus nodule.
--- NOTE | 2024-12-25 09:47 | XR_ITS ---
Examination: AP chest single view Technique one AP portable supine chest single view Date and time: December 25, 2024 1013 hours INDICATIONS: Sepsis alert today IMPRESSION: Normal heart size. Lungs are clear. The osseous structures are intact. IMPRESSION: No active disease.
--- NOTE | 2024-12-25 09:49 | EKG_ITS ---
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
[2024-12-25 10:27] LABS: Lactate (Lactic Acid) 2.2 mMol/L (0.4-2.0)
--- NOTE | 2024-12-25 10:46 | PC.NURSE ---
1045; RN SPOKE WITH RADIOLOGY REGARDING PENDING LABS RADIOLOGY PROMPTED RN TO BRING PATIENT DOWN ONCE VERIFIED PATIENT HAS BOTH KIDNEYS AND NO HX OF RENAL DISEASE
[2024-12-25 10:47] LABS: INR 1.0 (0.9-1.3); Partial Thromboplastin Time 33.9 Seconds (22.0-36.0); Prothrombin Time 11.1 Seconds (9.0-12.2)
[2024-12-25 11:03] LABS: Alanine Aminotransferase < 7 U/L (10-49); Albumin, Serum 2.9 gm/dL (3.5-5.0); Albumin/Globulin Ratio 1.4 (1.2-2.2); Alkaline Phosphatase 143 U/L (46-116); Anion Gap 13 (7-16); Aspartate Amino Transferase 23 U/L (0-34); BUN/Creatinine Ratio 9 Ratio (12-20); Bilirubin,Total 0.8 mg/dL (0.3-1.2); Blood Urea Nitrogen 9 mg/dL (9-23); Calcium 8.0 mg/dL (8.3-10.6); Calcium (Corrected) 8.9 mg/dL (8.5-10.1); Carbon Dioxide 18.2 mMol/L (20.0-31.0); Chloride 108 mMol/L (98-107); Creatinine (Component) 1.0 mg/dL (0.6-1.3); Estimated Creatinine Clearance 82.4 mL/min (>60); Globulin 2.1 gm/dL (2.3-3.5); Glucose 102 mg/dL (74-106); Osmolality,Calculated 276 (275-295); Potassium 3.5 mMol/L (3.4-5.1); Sodium 139 mMol/L (136-145); Total Protein 5.0 gm/dL (5.7-8.2); Troponin I < 0.002 ng/mL (0.0-0.045); eGFR > 60 See Note
[2024-12-25] MEDS: PIPER/TAZO 3.375 GM PREMIX 3.375 GM/50 ML BAG IV ×3 (12:20→23:45)
[2024-12-25 12:48] LABS: Collection Type, Urine Clean Catch; Squamous Epithelial Cell,Urine 0 /hpf (0-5)
[2024-12-25 12:55] LABS: Bilirubin,Urine Negative (Negative); Blood,Urine 1+ (Negative); Clarity,Urine Clear (Clear/Hazy); Color,Urine Lt-Yellow (Lt Yel-Yel); Glucose, Urine Negative (Negative); Ketones,Urine Negative (Negative); Leukocyte Esterase,Urine Positive (Negative); Nitrite,Urine Negative (Negative); PH,Urine 6.0 (5.0-7.0); Protein,Urine Negative (Neg - Trace); RBC,Urine 7 /hpf (0-3); Specific Gravity,Urine 1.044 (1.001-1.035); Urobilinogen,Urine Negative mg/dL (0.0-1.0); WBC,Urine 13 /hpf (0-5)
[2024-12-25 13:24] LABS: Reflex Lactate? Y
[2024-12-25 14:02] LABS: Lactic Acid, 3 HR 1.9 mMol/L (0.4-2.0)
[2024-12-25] MEDS: IBUPROFEN TAB 400 MG TABLET 800 MG PO (23:30)
[2024-12-26] VITALS (7 sets, daily range): BP systolic 107–127; BP diastolic 72–80; PULSE 75–96; RESP 16–20; TEMP 36.4–37.3; O2SAT 96–99
[2024-12-26] MEDS: PIPER/TAZO 3.375 GM PREMIX 3.375 GM/50 ML BAG IV ×2 (05:46→12:13)
[2024-12-26] MEDS: HYDROcodone/APAP 5/325 TABLET 1 TAB PO ×2 (05:51→17:45)
[2024-12-26 06:39] LABS: Basophils # (Auto) 0.1 Thou/mm3 (0.0-0.2); Basophils % (Auto) 0 % (0-2.5); Eosinophils # (Auto) 0.1 Thou/mm3 (0.0-0.5); Eosinophils % (Auto) 1 % (0-10); Hematocrit 34.1 % (36.0-46.0); Hemoglobin 11.3 g/dL (12.0-16.0); Immature Granulocytes Auto 0.17 Thou/mm3 (0.00-0.00); Lymphocytes # (Auto) 1.5 Thou/mm3 (1.0-4.8); Lymphocytes % (Auto) 8 % (10-50); Mean Corpuscular HGB Conc 33.1 g/dl (31.0-37.0); Mean Corpuscular Hemoglobin 29.0 pg (25.0-35.0); Mean Corpuscular Volume 87 fL (80-100); Monocytes # (Auto) 1.2 Thou/mm3 (0.0-0.8); Monocytes % (Auto) 7 % (0-12); Neutrophils # (Auto) 14.8 Thou/mm3 (1.8-7.7); Neutrophils % (Auto) 83 % (37-80); Nucleated Red Blood Cell # 0.00 Thou/mm3 (0.00-0.00); Nucleated Red Blood Cell % 0 /100 WBC (0); Platelet Count 232 Thou/mm3 (140-440); RDW Standard Deviation 45.6 fL (36.4-46.3); Red Blood Count 3.90 Miln/mm3 (4.00-5.20); White Blood Count 17.8 Thou/mm3 (3.6-11.0)
--- NOTE | 2024-12-26 08:35 | PC.CC ---
Patient is a 29 year-old, female, presents to the hospital to deliver her baby boy. ASW, Chastity, made [id number] contact to complete an assessment due to have a history of depression. ASW introduced herself, role in the agency, reason for visit, and discussed limits of confidentiality. Patient appeared alert and oriented to self, time, place, and situation. Patient made good eye contact. Patient was cooperative. Patient?s behavior appeared ordinary. No signs of delusions or hallucinations. Patient reports the father of the baby is her significant other, Luis Felipe Colon. Patient confirmed information on demographics. Patient reports that in 2019 during COV she was diagnosed with depression and was receiving outpatient mental health services with [facility] in [place]. Patient disclosed she was discharged in 2020 and is no longer receiving outpatient mental health services. Patient reports she is not experiencing any depression. At the time of encounter patient denied SI/HI/VH/AH. Patient denied history with CWS as this is her first child. Patient denied history of domestic violence. Patient reports she has all the supplies she needs for her new-born and is receiving WIC. Patient reports her support system includes her significant other, mother, and aunt. ASW provided psychoeducation regarding baby blues and Post- Depression, as well as counseling groups at [facility], and [facility]. SW provided community resources: Warm Line and Crisis Line. Patient reports in the event she begins to experience symptoms of depression she knows how to access services. ASW provided update to bedside FATIMAH Gonzalez.
--- NOTE | 2024-12-26 08:48 | ESPR_ITS ---
Subjective Subjective Interval history: Delivery type: Patient doing well this morning. No acute complaints. Ambulating, tolerating p.o. and voiding without difficulty. HTN/Pre-Eclampsia screen: No chest pain, shortness of breath, headache, visual changes, epigastric or right upper quadrant pain. Breast-feeding, lochia diminishing. Bowel: Flatus+/ BM+ Exam Vital Signs Temp Pulse Resp BP Pulse Ox O2 Del Method 98.7 F 75 20 107/72 96 Room Air 12/26/24 03:46 12/26/24 03:46 12/26/24 03:46 12/26/24 03:46 12/26/24 03:46 12/26/24 03:46 Constitutional Constitutional: no acute distress Routine HEENT Exam Head: Present normocephalic and atraumatic Eye: Present EOMI and PERRL ENT: Present mucous membranes moist Routine Neck Exam Neck: Present supple and trachea midline Routine Respiratory Exam Respiratory: Present chest non-tender, lungs clear, normal breath sounds and no resp distress Routine Cardiovascular Exam Cardiovascular: Present RRR Routine Abdominal Exam Abdominal: Present soft and normoactive bowel sounds Routine Extremities Exam Extremities: Present full ROM Routine Skin Exam Skin: Present intact, dry and warm Routine Neurological Exam Neurological: Present alert, oriented X3 and CN II-XII intact Routine Psychiatric Exam Psychiatric: Present normal affect and normal thought process Objective Labs 12/26/24 06:10 12/25/24 10:15 Labs: Laboratory Results - last 24 hr 12/25/24 12/25/24 12/25/24 10:15 12:25 13:44 WBC RBC Hgb Hct MCV MCH MCHC RDW Std Deviation Plt Count Neut % (Auto) Lymph % (Auto) Coffee % (Auto) Eos % (Auto) Baso % (Auto) Neut # (Auto) Lymph # (Auto) Coffee # (Auto) Eos # (Auto) Baso # (Auto) Immature Gran # (Auto) Absolute Nucleated RBC Immature Gran % Nucleated RBC % PT 11.1 INR 1.0 APTT 33.9 Sodium 139 Potassium 3.5 Chloride 108 H Carbon Dioxide 18.2 L Anion Gap 13 BUN 9 Creatinine 1.0 Estim Creat Clear Calc 82.4 eGFR > 60 BUN/Creatinine Ratio 9 L Glucose 102 Calculated Osmolality 276 Lactic Acid 2.2 H 1.9 Calcium 8.0 L Corrected Calcium 8.9 Total Bilirubin 0.8 AST 23 ALT < 7 L Alkaline Phosphatase 143 H Troponin I < 0.002 Total Protein 5.0 L Albumin 2.9 L Globulin 2.1 L Albumin/Globulin Ratio 1.4 Ur Collection Type Clean Catch Urine Color Lt-Yellow Urine Clarity Clear Urine pH 6.0 Ur Specific [place] 1.044 H Urine Protein Negative Urine Glucose (UA) Negative Urine Ketones Negative Urine Blood 1+ A Urine Nitrite Negative Urine Bilirubin Negative Urine Urobilinogen (Auto) Negative Ur Leukocyte Esterase Positive Urine RBC 7 H Urine WBC 13 H Ur Squamous Epith Cells 0 Urine Bacteria None 12/26/24 06:10 WBC 17.8 H RBC 3.90 L Hgb 11.3 L Hct 34.1 L MCV 87 MCH 29.0 MCHC 33.1 RDW Std Deviation 45.6 Plt Count 232 Neut % (Auto) 83 H Lymph % (Auto) 8 L Coffee % (Auto) 7 Eos % (Auto) 1 Baso % (Auto) 0 Neut # (Auto) 14.8 H Lymph # (Auto) 1.5 Coffee # (Auto) 1.2 H Eos # (Auto) 0.1 Baso # (Auto) 0.1 Immature Gran # (Auto) 0.17 H Absolute Nucleated RBC 0.00 Immature Gran % 1 H Nucleated RBC % 0 PT INR APTT Sodium Potassium Chloride Carbon Dioxide Anion Gap BUN Creatinine Estim Creat Clear Calc eGFR BUN/Creatinine Ratio Glucose Calculated Osmolality Lactic Acid Calcium Corrected Calcium Total Bilirubin AST ALT Alkaline Phosphatase Troponin I Total Protein Albumin Globulin Albumin/Globulin Ratio Ur Collection Type Urine Color Urine Clarity Urine pH Ur Specific [place] Urine Protein Urine Glucose (UA) Urine Ketones Urine Blood Urine Nitrite Urine Bilirubin Urine Urobilinogen (Auto) Ur Leukocyte Esterase Urine RBC Urine WBC Ur Squamous Epith Cells Urine Bacteria Assessment & Plan Problem List (1) Arrest of descent, delivered, current hospitalization: Status: Acute (2) delivery delivered: Status: Acute Assessment and plan: 1. Continue routine /post-op care 2. Labs reviewed, cbc appropriate 3. Remove dressing/Haddad 4. Encourage to ambulate, shower 5. Encourage PO intake, breast feeding Time Spent With Patient Time: Total time spent is greater than 50% in coordination of care (as documented) at patient's floor/unit and/or counseling patient:
[2024-12-26] MEDS: DOCUSATE SOD 100 MG CAPSULE PO (09:30)
[2024-12-26] MEDS: ENOXAPARIN SOD INJ 40 MG/0.4 ML SYRINGE SC (09:31)
[2024-12-26] MEDS: IBUPROFEN TAB 400 MG TABLET 800 MG PO (10:02)
[2024-12-26] MEDS: AZITHROMYCIN 250 MG TABLET 500 MG PO (10:02)
[2024-12-27] MEDS: IBUPROFEN TAB 400 MG TABLET 800 MG PO (00:17)
[2024-12-27 04:00] VITALS: BP 118/80; PULSE 82; RESP 16; TEMP 36.7; O2SAT 96
--- NOTE | 2024-12-27 07:14 | PD.LDPPPRG ---
Subjective Subjective Interval history: Delivery type: , postoperative course significant for pneumonia/atelectasis patient currently on Augmentin and azithromycin and has prescriptions for outpatient antibiotic Patient doing well this morning. No acute complaints. Ambulating, tolerating p.o. and voiding without difficulty. HTN/Pre-Eclampsia screen: No chest pain, shortness of breath, headache, visual changes, epigastric or right upper quadrant pain. Breast-feeding, lochia diminishing. Bowel: Flatus+/ BM+ Exam Vital Signs Temp Pulse Resp BP Pulse Ox O2 Del Method 98.1 F 82 16 118/80 96 Nasal Cannula 12/27/24 04:00 12/27/24 04:00 12/27/24 04:00 12/27/24 04:00 12/27/24 04:00 12/27/24 04:00 Constitutional Constitutional: no acute distress Routine HEENT Exam Head: Present normocephalic and atraumatic Eye: Present EOMI and PERRL ENT: Present mucous membranes moist Routine Neck Exam Neck: Present supple and trachea midline Routine Respiratory Exam Respiratory: Present chest non-tender, lungs clear, normal breath sounds and no resp distress Routine Cardiovascular Exam Cardiovascular: Present RRR Routine Abdominal Exam Abdominal: Present soft and normoactive bowel sounds Routine Extremities Exam Extremities: Present full ROM Routine Skin Exam Skin: Present intact, dry and warm Routine Neurological Exam Neurological: Present alert, oriented X3 and CN II-XII intact Routine Psychiatric Exam Psychiatric: Present normal affect and normal thought process Objective Labs 12/26/24 06:10 12/25/24 10:15 Labs: Laboratory Results - last 24 hr 12/23/24 15:40 Crossmatch See Detail Assessment & Plan Problem List (1) Arrest of descent, delivered, current hospitalization: Status: Acute (2) delivery delivered: Status: Acute Assessment and plan: PPD/POD#2 1. Continue routine care 2. Transition to PO meds. 3. Encourage to ambulate/ breast-feed 4. Anticipate discharge home today. 5 we will need close follow-up at. Outpatient office to monitor pneumonia Time Spent With Patient Time: Total time spent is greater than 50% in coordination of care (as documented) at patient's floor/unit and/or counseling patient:
--- NOTE | 2024-12-27 07:15 | ESDS_ITS ---
DS: Providers Provider Date of admission: 12/23/24 14:28 Primary care physician: Physician No Primary/Family Admitting Provider: Tutu Almonte MD Attending Provider on Admission: Wong Farias MD Consults: 12/25/24 01:44 Referral Routine Comment: Attending Provider on DC: Tutu Almonte MD Discharging Provider: Tutu Almonte MD DS: Diagnosis Discharge Diagnosis (1) Atelectasis: Status: Acute (2) Pneumonia: Status: Acute (3) Endometriosis: Status: Acute (4) delivery delivered: Status: Acute Problem List Completed Was Problem List Reviewed/Reconciled?: Yes Summary/Hosp Course Brief History: Johanna Shah is a 29-year-old 1 para 0 at 41 weeks and 0 days gestation presenting for term induction of labor. Her estimated due date is 12/16/2024, based on an ultrasound performed on 03/24/2024. The patient receives care with Dr. Farias at [facility] and has been compliant with her appointments. On presentation, Ms. Shah denies any contractions, leakage of fluid, or other obstetric complaints. She has had an unremarkable course with normal ultrasounds throughout. The patient's records have been reviewed, indicating appropriate care and screening. Obstetric History: - GPAL: A0 L0 - Current : - Gestational age: 41 weeks and 0 days - Estimated due date: December 16, 2024 - care with Dr. Farias at [facility] - Group B strep negative Diagnostic Test Results and Labs: - Panel (07/10/2024): Blood group O positive, antibody screen negative, HIV non-reactive, RPR non-reactive, hepatitis B surface antigen negative, rubella immune, gonorrhea not detected, chlamydia not detected - Triple screen (07/10/2024): Negative - One-hour glucose tolerance test (09/10/2024): 115 - Ultrasounds: Unremarkable - Group B strep: Negative ROS: Obstetric: Negative for contractions, leakage of fluid. Peripartum Data Delivery Method: Low Transverse Episiotomy Description: None Procedures: Procedures Operation Date: 12/25/24 00:29 Actual Procedure Side Surgeon p in OR Wong Farias MD Time Spent with Patient Time attestation: Total time spent providing and/or coordinating discharge services: Exam Vital Signs Temp Pulse Resp BP Pulse Ox O2 Del Method 98.1 F 82 16 118/80 96 Nasal Cannula 12/27/24 04:00 12/27/24 04:00 12/27/24 04:00 12/27/24 04:00 12/27/24 04:00 12/27/24 04:00 Discharge Plan Plan Patient Disposition: HOME (Self Care) Prescriptions/Referrals Prescriptions/Med Rec: New hydrocodone-acetaminophen 5-325 mg tablet 1 tab PO Q6H MDD 4 PRN (Reason: pain) Qty: 20 0RF ibuprofen 600 mg tablet 600 mg PO Q6H PRN (Reason: pain) Qty: 30 0RF amoxicillin-pot clavulanate 875-125 mg tablet 1 tab PO Q12H Qty: 10 0RF azithromycin 500 mg tablet 500 mg PO QDAY 3 Days Qty: 3 0RF Continued PNV cmb#95-ferrous fumarate-FA [] 28 mg iron- 800 mcg tablet 1 tab PO QDAY Patient Comments: TAKE 1 TABLET BY MOUTH EVERY DAY FOR 30 DAYS Discontinued folic acid 1 mg tablet Patient Comments: TAKE 1 TABLET BY MOUTH EVERY DAY FOR 30 DAYS Referrals: Wong Farias MD [Physician] - No Primary/Family,Physician [Primary Care Provider] - Patient/Caregiver Discharge Instructions Discharge Activity: activity as tolerated Other Discharge Activity Instructions:: Follow up office 1 week. Education Materials: After Delivery [place] Concerns, Breast Care After , After a , Nutrition While , What Is Pneumonia?, Treating Pneumonia, Understanding Depression, : Caring for Yourself, C Section Dc, Feel Healthy After Print Language: Canadian Stand Alone Forms: Carmen Award Info., Patient Portal Info Letter Discharge Order Discharge Orders: Discharge (Routine); Ordered 12/27/24 Ordered By: Tutu Almonte Planned Discharge Date 12/27/24
[2024-12-27 08:20] VITALS: BP 111/75; PULSE 75; RESP 18; TEMP 36.4; O2SAT 98
[2024-12-27] MEDS: ENOXAPARIN SOD INJ 40 MG/0.4 ML SYRINGE SC (08:21)
[2024-12-27] MEDS: DOCUSATE SOD 100 MG CAPSULE PO (08:21)
== END 2024-12-27 12:20 | disposition home or self-care (01) | DRG 540 ==
LOC: S4NX 14:28 → S4SX 14:35 → S4NX 12-25 02:16
PROVIDERS: Admitting Provider Obstetrics & Gynecology; Visit Provider Specialist
PROC: 10D00Z1 Extraction of Products of Conception, Low, Open Approach (ICD-10-PCS; CPT 59514; principal; 2024-12-25 00:45)
DX: O48.0 Post-term pregnancy (principal); Z3A.41 41 weeks gestation of pregnancy; Z37.0 Single live birth; O62.1 Secondary uterine inertia; N80.3A3 Superficial endometriosis of the bilateral uterosacral ligament(s); O34.83 Maternal care for other abnormalities of pelvic organs, third trimester; O99.284 Endocrine, nutritional and metabolic diseases complicating childbirth; E04.1 Nontoxic single thyroid nodule; J18.9 Pneumonia, unspecified organism; O99.53 Diseases of the respiratory system complicating the puerperium; J98.11 Atelectasis
CPT/HCPCS: 36415; 59409; 71045; 71260; 76815; 80053; 81001; 83605; 84484; 85025; 85610; 85730; 86780; 86850; 86900; 86901; 86923; 87040; 87086; 93005; 94762; A4314; A4649; J0131; J0689; J0690; J1650; J1885; J2210; J2470; J2543; J2590; J2795; J3010; J3490; J7050; J7120; Q9967; S0191; A9270